=== PATIENT | female | born 1975 | race African-American/Black ===

== ENCOUNTER 2017-11-19 07:47 | Emergency (ER) | payer BC, OTHER ==
[~2017-11-19] VITALS: Ht 165.1 cm; Wt 80.0 kg
[~2017-11-19 07:47] MED LIST: ALBU17I INH; ALPR1TAB3 PO
[2017-11-19 07:48] VITALS: BP 145/87; PULSE 85; RESP 16; TEMP 98.1; O2SAT 100
[2017-11-19] MEDS ORDERED: SODIUM CHLOR 0.9% 1000 ML INJ 1,000 ML IV ONE (08:03)
--- NOTE | 2017-11-19 08:08 | PD ---
HPI Chief Complaint: Diabetic Time Seen by Provider: 07:55 Travel History International Travel<30 days: No Contact w/Intl Traveler<30days: No Traveled to known affect area: No History of Present Illness HPI Patient presents to the emergency department complaining of hyperglycemia. He was diagnosed with diabetes on the of this month states that she was started on metformin 500 mg 1 tab p.o. twice daily at [facility]. She does not have a primary care physician. Accu-Chek yesterday was 345 and 404. Sunday was 517. She is reporting polyuria, polydipsia, bilateral blurry vision, nausea, nonbloody diarrhea, right flank pain. She denies abdominal pain , chest pain, shortness of breath, or vomiting. Accu-Chek in the ER was 278. Last meal was 7 PM yesterday. PFSH Past Medical History Asthma: Yes Anxiety: Yes Depression: Yes Diabetes: Yes Diminished Hearing: No Gastrointestinal Disorders: Yes (ABDOMINAL TUMORS (BENIGN)) Headaches: Yes ?: Not : 0 Para: 0 Past Surgical History Abdominal Surgery: Yes (LAPROSCOPIC) Gynecologic Surgery: Yes (D&C; 7 TUMORS, RT OVARY, AND RT FALLOPIAN TUBE REMOVED 04/12/09) Social History Alcohol Use: No Tobacco Use: No Substance Use: No Allergies-Medications (Allergen,Severity, Reaction): Coded Allergies: codeine (Unverified Allergy, Severe, THROAT SWELLING, 11/19/17) aspirin (Unverified Adverse Reaction, Intermediate, ABDOMINAL PAIN, ) Reported Meds & Prescriptions Reported Meds & Active Scripts Active Lantus Solostar Pen Inj (Insulin Glargine) 300 Unit/3 Ml Pen 20 Units SQ QHS 30 Days Reported Metformin (Metformin HCl) 500 Mg Tab 500 Mg PO BIDPC Review of Systems Except as stated in HPI: all other systems reviewed are Neg Physical Exam Narrative GENERAL: No acute distress. SKIN: Focused skin assessment warm/dry. HEAD: Atraumatic. Normocephalic. EYES: Pupils equal and round. No scleral icterus. No injection or drainage. ENT: No nasal bleeding or discharge. Mucous membranes pink and moist. NECK: Trachea midline. No JVD. CARDIOVASCULAR: Regular rate and rhythm. No murmur appreciated. RESPIRATORY: No accessory muscle use. Clear to auscultation. Breath sounds equal bilaterally. GASTROINTESTINAL: Abdomen soft, non-tender, nondistended. Hepatic and splenic margins not palpable. No CVA tenderness. MUSCULOSKELETAL: No obvious deformities. No clubbing. No cyanosis. No edema. NEUROLOGICAL: Awake and alert. No obvious cranial nerve deficits. Motor grossly within normal limits. Normal speech. PSYCHIATRIC: Appropriate mood and affect; insight and judgment normal. Data Data Last Documented VS Vital Signs Date Time Temp Pulse Resp B/P (MAP) Pulse Ox O2 Delivery O2 Flow Rate FiO2 11/19/17 08:12 17 Room Air 11/19/17 07:48 98.1 85 145/87 (106) 100 Orders Orders Complete Blood Count With Diff (11/19/17 08:03) Comprehensive Metabolic Panel (11/19/17 08:03) Magnesium (Mg) (11/19/17 08:03) Beta Hydroxybutyrate (Acetone) (11/19/17 08:03) Urinalysis - C+S If Indicated (11/19/17 08:03) Blood Gas Venous (Vbg) (11/19/17 08:03) Blood Glucose (11/19/17 08:03) Iv Access Insert/Monitor (11/19/17 08:03) Sodium Chlor 0.9% 1000 Ml Inj (Ns 1000 M (11/19/17 08:03) Ed Urine Pregnancytest Poc (11/19/17 08:03) Insulin Human Regular Inj (Novolin R Inj (11/19/17 10:30) Labs Laboratory Tests Test 11/19/17 08:15 11/19/17 08:34 White Blood Count 8.2 TH/MM3 Red Blood Count 5.50 MIL/MM3 Hemoglobin 13.8 GM/DL Hematocrit 42.3 % Mean Corpuscular Volume 76.8 FL Mean Corpuscular Hemoglobin 25.1 PG Mean Corpuscular Hemoglobin Concent 32.6 % Red Cell Distribution Width 13.8 % Platelet Count 263 TH/MM3 Mean Platelet Volume 9.9 FL Neutrophils (%) (Auto) 63.5 % Lymphocytes (%) (Auto) 25.8 % Monocytes (%) (Auto) 8.7 % Eosinophils (%) (Auto) 1.2 % Basophils (%) (Auto) 0.8 % Neutrophils # (Auto) 5.2 TH/MM3 Lymphocytes # (Auto) 2.1 TH/MM3 Monocytes # (Auto) 0.7 TH/MM3 Eosinophils # (Auto) 0.1 TH/MM3 Basophils # (Auto) 0.1 TH/MM3 CBC Comment DIFF FINAL Differential Comment Urine Color YELLOW Urine Turbidity CLOUDY Urine pH 5.0 Urine Specific [place] 1.040 Urine Protein NEG mg/dL Urine Glucose (UA) >=500 mg/dL Urine Ketones 20 mg/dL Urine Occult Blood NEG Urine Nitrite NEG Urine Bilirubin NEG Urine Urobilinogen LESS THAN 2 mg/dL Urine Leukocyte Esterase NEG Urine RBC 1 /hpf Urine WBC 3 /hpf Urine Squamous Epithelial Cells 25 /hpf Urine Bacteria RARE /hpf Urine Mucus FEW /lpf Microscopic Urinalysis Comment CULT NOT INDICATED Blood Urea Nitrogen 8 MG/DL Creatinine 1.02 MG/DL Random Glucose 309 MG/DL Total Protein 8.4 GM/DL Albumin 3.8 GM/DL Calcium Level 9.1 MG/DL Magnesium Level 1.9 MG/DL Alkaline Phosphatase 120 U/L Aspartate Amino Transf (AST/SGOT) 42 U/L Alanine Aminotransferase (ALT/SGPT) 33 U/L Total Bilirubin 0.5 MG/DL Sodium Level 133 MEQ/L Potassium Level 5.3 MEQ/L Chloride Level 100 MEQ/L Carbon Dioxide Level 23.5 MEQ/L Anion Gap 10 MEQ/L Estimat Glomerular Filtration Rate 72 ML/MIN B-Hydroxybutyrate 1.44 MMOL/L Blood Gas Puncture Site LINE Blood Gas Patient Temperature 98.6 Venous Blood pH 7.39 Venous Blood Partial Pressure CO2 41 mmHg Venous Blood Partial Pressure O2 56 mmHg Venous Blood HCO3 24 mmol/L Venous Blood Oxygen Saturation 86 % Venous Blood Oxygen Content 16.9 Vol % Venous Blood Base Excess 0.1 mmol/L Blood Gas Inspired Oxygen 21 % [facility] Medical Decision Making Medical Screen Exam Complete: Yes Emergency Medical Condition: Yes Interpretation(s) Labs: AST, alk phos, creatinine, potassium slightly increased. Blood sugar 309 , beta hydroxybutyrate 1.44, UA positive for glucose and ketones Differential Diagnosis DKA, hyperglycemia, electrolyte abnormality Narrative Course Patient presents to the emergency department as a newly diagnosed diabetic with increasing blood sugars. Accu-Chek in the emergency department was 278. Patient was placed on threat monitoring analyst, IV access obtained, and labs sent. Patient given 1 L IV normal saline. Accu-Chek 286 after 1 L IV normal saline. Physician Communication Physician Communication DR. Roman, Endocrine: Give 4 units of regular insulin in the ER, patient to continue the Metformin 500 mg twice daily, discharge with Lantus 20 units SQ QHS , follow-up in his office this week. Diagnosis Primary Impression: Hyperglycemia due to type 2 diabetes mellitus Qualified Codes: E11.65 - Type 2 diabetes mellitus with hyperglycemia Referrals: Celio Kirby MD Patient Instructions: Diabetic Hyperglycemia (ED), General Instructions Additional Instructions: 1. Meds as directed. 2. Followup with Dr. Kirby tomorrow at 2:30PM. 3. return to ER immediately for fever, vomiting, chest pain, shortness of breath, weakness, dizzyness, or for any new/worrisome/worsening symptoms. Med/Other Pt SpecificInfo: Prescription(s) given Scripts Insulin Glargine Inj (Lantus Solostar Pen Inj) 300 Unit/3 Ml Pen 20 UNITS SQ QHS for Blood Sugar Management for 30 Days, #5 PEN 0 Refills Prov: Joanna Salas MD 11/19/17 Disposition: 01 DISCHARGE HOME Condition: Stable oJanna Salas MD Nov 19, 2017 08:08
[2017-11-19 08:37] LABS: AUTOMATED NEUTROPHIL # 5.2 TH/MM3 (1.8-7.7); BASOPHIL # 0.1 TH/MM3 (0-0.2); BASOPHIL % 0.8 % (0.0-2.0); EOSINOPHIL # 0.1 TH/MM3 (0-0.4); EOSINOPHIL % 1.2 % (0.0-4.0); HEMATOCRIT 42.3 % (35.0-46.0); HEMOGLOBIN 13.8 GM/DL (11.6-15.3); LYMPH % 25.8 % (9.0-44.0); LYMPHOCYTE # 2.1 TH/MM3 (1.0-4.8); MEAN CELL VOLUME 76.8 FL (80.0-100.0); MEAN CORPUSCULAR HEMOGLOBIN 25.1 PG (27.0-34.0); MEAN CORPUSCULAR HGB CONC 32.6 % (32.0-36.0); MEAN PLATELET VOLUME 9.9 FL (7.0-11.0); MONO % 8.7 % (0.0-8.0); MONOCYTE # 0.7 TH/MM3 (0-0.9); NEUT % 63.5 % (16.0-70.0); PLATELET COUNT 263 TH/MM3 (150-450); RED CELL DISTRIBUTION WIDTH 13.8 % (11.6-17.2); WHITE BLOOD COUNT 8.2 TH/MM3 (4.0-11.0)
[2017-11-19 09:03] LABS: BACTERIA, URINE RARE /hpf; BILIRUBIN, URINE NEG (NEG); BLOOD, URINE NEG (NEG); GLUCOSE,URINE >=500 mg/dL (NEG); KETONE, URINE 20 mg/dL (NEG); MUCUS URINE FEW /lpf (OCC); NITRITE,URINE NEG (NEG); SQUAMOUS EPITHELIAL CELL URINE 25 /hpf (0-5); URINE COLOR YELLOW (YELLW/STRAW); URINE LEUKOCYTE ESTERASE NEG (NEG)
[2017-11-19 09:06] LABS: ALKALINE PHOSPHATASE 120 U/L (45-117); ALT (GPT) 33 U/L (10-53); TOTAL BILIRUBIN ADULT 0.5 MG/DL (0.2-1.0); TOTAL PROTEIN 8.4 GM/DL (6.4-8.2)
[2017-11-19] MEDS ORDERED: METF500T PO (09:08)
[2017-11-19 09:10] LABS: ALBUMIN 3.8 GM/DL (3.4-5.0); BICARBONATE 23.5 MEQ/L (21.0-32.0); BLOOD UREA NITROGEN 8 MG/DL (7-18); CALCIUM 9.1 MG/DL (8.5-10.1); CHLORIDE 100 MEQ/L (98-107); CREATININE 1.02 MG/DL (0.50-1.00); GLOMERULAR FILTRATION RATE 72 ML/MIN (>89); GLUCOSE,RANDOM 309 MG/DL (74-106); SODIUM (NA) 133 MEQ/L (136-145)
[2017-11-19 09:11] LABS: AST (GOT) 42 U/L (15-37); MAGNESIUM 1.9 MG/DL (1.5-2.5)
[2017-11-19] MEDS ORDERED: LANTINJ SQ (10:16)
[2017-11-19 10:24] VITALS: BP 121/57; PULSE 79; RESP 17; O2SAT 99
[2017-11-19] MEDS ORDERED: INSULIN HUMAN REGULAR 1,000 UNITS/10 ML VIAL IV PUSH ONE (10:30)
[2017-11-19] MEDS ORDERED: [UNRECOGNIZED DRUG - SUPPLY] SQ (10:34)
[2017-11-19 11:40] VITALS: BP 113/79
== END 2017-11-19 11:42 | disposition home or self-care (01) ==
LOC: NEPE 07:47
DX: E11.65 Type 2 diabetes mellitus with hyperglycemia (principal); R35.8 Other polyuria; R63.1 Polydipsia; H53.8 Other visual disturbances; R10.9 Unspecified abdominal pain; J45.909 Unspecified asthma, uncomplicated; F41.8 Other specified anxiety disorders; Z88.5 Allergy status to narcotic agent; Z79.4 Long term (current) use of insulin
CPT/HCPCS: 80053; 81001; 82010; 82805; 83735; 84703; 85025; 96361; 96374; 99284; J1815; J7030